=== PATIENT | male | born 1990 | race Caucasian/White ===

== ENCOUNTER 2021-05-14 19:32 | Emergency (ER) | payer BC ==
[2021-05-14 19:45] VITALS: BP 135/85; TEMP 99.9; BMI 35.9
[2021-05-14] MEDS ORDERED: SODIUM CHLORIDE 1,000 ML IV STA ×2 (20:43→22:19)
[2021-05-14] MEDS ORDERED: ONDANSETRON 4 MG/2 ML VIAL IVPUSH ONE (20:46)
[2021-05-14] MEDS ORDERED: ONDANSETRON 4 MG/2 ML VIAL ONE (20:59)
[2021-05-14] MEDS ORDERED: ACETAMINOPHEN INJECTION 100 ML IVPB ONE (21:02)
[2021-05-14] MEDS ORDERED: ACETAMINOPHEN 1000 MG/100 ML BAG IVPB ONE (21:02)
[2021-05-14 21:29] LABS: BASO % 0.1 % (0-2.0); EOS % 0.1 % (0-4.5); HEMATOCRIT 43.9 % (35.4-49); HEMOGLOBIN 15.4 GM/dL (11.7-16.9); LYMPH % 12.6 % (8-40); MCH 31.8 pg (25.7-33.7); MEAN CELL VOLUME 90.9 fl (80-96); MEAN PLT VOLUME 7.1 fl (7.5-11.1); MONO % 7.6 % (3.8-10.2); NEUT % 79.6 % (42.8-82.8); PLATELET COUNT 290 10^3/uL (134-434); RBC 4.83 M/mm3 (4.00-5.60); RDW 13.5 % (11.9-15.9); WHITE BLOOD COUNT 9.2 K/mm3 (4.0-10.0)
[2021-05-14 21:56] LABS: CALCIUM 8.8 mg/dL (8.5-10.1)
[2021-05-14 21:57] LABS: BLOOD UREA NITROGEN 26.1 mg/dL (7-18)
[2021-05-14 21:59] LABS: CREATININE 1.5 mg/dL (0.55-1.3)
[2021-05-14 22:01] LABS: BILIRUBIN,TOTAL 1.1 mg/dL (0.2-1)
[2021-05-14] MEDS ORDERED: KETOROLAC TROMETHAMINE 30 MG/1 ML VIAL ONE (23:36)
[2021-05-14] MEDS ORDERED: KETOROLAC TROMETHAMINE 30 MG/1 ML VIAL IVPUSH ONE (23:36)
[2021-05-15] VITALS: PULSE 98
[2021-05-16 11:09] LABS: SARS-CoV-2 NAA Not Detected (Not Detected)
== END 2021-05-15 00:34 | disposition home or self-care (01) ==
LOC: JER 19:32
PROC: 3E0333Z Introduction of Anti-inflammatory into Peripheral Vein, Percutaneous Approach (ICD-10-PCS; principal; 2021-05-14)
PROC: 3E0333Z Introduction of Anti-inflammatory into Peripheral Vein, Percutaneous Approach (ICD-10-PCS; 2021-05-14)
PROC: 3E033GC Introduction of Other Therapeutic Substance into Peripheral Vein, Percutaneous Approach (ICD-10-PCS; 2021-05-14)
PROC: 3E0337Z Introduction of Electrolytic and Water Balance Substance into Peripheral Vein, Percutaneous Approach (ICD-10-PCS; 2021-05-14)
DX: R11.2 Nausea with vomiting, unspecified (principal); R19.7 Diarrhea, unspecified; E86.0 Dehydration; N17.0 Acute kidney failure with tubular necrosis
CPT/HCPCS: 36415; 80053; 83690; 85025; 99284-25; C9803; U0003; U0005